=== PATIENT | female | born 1970 | race Caucasian/White ===

== ENCOUNTER 2023-07-05 17:50 | Emergency (ER) | payer OTHER, SELFPAY ==
--- NOTE | ~2023-07-05 | CT_ITS ---
EXAMINATION: CT HEAD WITHOUT CONTRAST (STROKE PROTOCOL) EXAMINATION: CLINICAL INFORMATION: New onset of blurry vision COMPARISON: None. TECHNIQUE: Contiguous axial imaging was performed from the skull base to vertex without intravenous administration of contrast. Coronal and sagittal reformatted images are performed at the CT scanner. [This CT examination was performed using dose optimization techniques as appropriate, variously including the following: *Automated exposure control *Adjustment of mA and/or kV according to patient size (this includes techniques or standardized protocols for targeted exams where dose is matched to indication/reason for exam; i.e. extremities or head) *Use of iterative reconstruction technique] DLP: 631 mGy-cm. FINDINGS: There is no evidence of acute intracranial hemorrhage or territorial infarction. No abnormal mass-effect or midline shift is seen. [place] to white matter differentiation is well preserved. No extra-axial fluid collections are identified. The ventricles are normal in size. There is no abnormal attenuation within the brain parenchyma. There is no osseous abnormality. The mastoid air cells and visualized portions of the paranasal sinuses are well-aerated. CT/CT head for stroke IMPRESSION: No acute intracranial pathology. This critical result was discussed with Ryley at 1823 hours on 07/05/2023. It was ascertained that the content and urgency of the report was understood at the time of direct communication.
--- NOTE | 2023-07-05 17:53 | ED.GENADULT ---
HPI - General Adult General Chief complaint: Eye Problems Stated complaint: vision becoming more blurry x1 hour Time Seen by Provider: 07/05/23 18:08 Source: patient Mode of arrival: ambulatory Limitations: no limitations History of Present Illness HPI narrative: 52-year-old female with a history hyperlipidemia who presents emergency department for evaluation of vision changes in both eyes. The patient states that she took a hot shower. She was then getting dressed and putting laundry way when she had blurred vision in both eyes. She describes the change and blotches in her vision is if someone put Vaseline over glass. She denied any associated symptoms. She denied headache, nausea, vomiting, weakness, numbness. She states that 1 month prior she did have a new floater in her right eye but she states she only sees this when she is trying to read. Patient does not wear glasses and states she only uses reading glasses. Patient was seen by provider at triage and she was made a stroke alert and she was brought directly to the CT scanner and then to a room. Related Data Previous Rx's Medication Instructions Recorded metoclopramide HCl 10 mg tablet 10 mg PO Q6H PRN nausea and 07/05/23 (Reglan) vomiting #14 tabs Allergies Allergy/AdvReac Type Severity Reaction Status Date / Time No Known Allergies Allergy Verified 07/05/23 17:55 Review of Systems Review of Systems: Yes all other systems are reviewed and are negative [facility] Past Medical History [facility] Narrative: Social history: Patient denies tobacco use. She occasionally drinks alcohol. She does smoke marijuana and use edible marijuana. Social History Social History Smoked in Last 30 Days: No Advance Directives: No Advance Directives Information Provided: No Physical Exam ED Vital Signs: Vital Signs - 24 hr 07/05/23 17:56 07/05/23 19:38 07/05/23 20:22 Temperature 97.9 F 98.2 F Pulse Rate 87 99 73 Respiratory Rate 16 15 16 Blood Pressure 143/87 H 134/84 128/73 Pulse Oximetry 98 98 Oxygen Delivery Method Room Air Room Air Room Air BMI result Body Mass Index 25.2 Vital signs were normal Exam: General: Awake, alert in no distress Head: Normocephalic, atraumatic EENT: PERRL, Lids normal, sclera normal, conjunctiva normal, nose normal , ears normal, throat without erythema or exudates Neck: Supple, no adenopathy Lung: breath sounds symmetric, no wheezing, rales or rhonchi Chest: symmetric movement, nontender Heart: regular rate and rhythm, normal S1, S2 no murmurs or rubs Abdomen: soft, non-tender, nondistended, normal bowel sounds Back: no vertebral tenderness, no CVAT Extremities: no deformities, moves all extremities symmetrically Skin: no rashes, no lesion, normal color and warmth Neuro: Awake, alert, oriented, normal speech, cranial nerves intact, moves all extremities symmetrically , peripheral vision is normal with no deficits Psych: Pleasant, cooperative NIH Stroke Scale Internal: Initial- Upon Arrival Time: 17:58 Level of Consciousness: Alert Level of Consciousness Questions: Answers both questions correctly Level of Consciousness Commands: Performs both tasks correctly Best Gaze: Normal Visual: No visual loss (left eye) Facial Palsy: Normal Motor Arm (Right): No drift Motor Arm (Left): No drift Motor Leg (Right): No drift Motor Leg (Left): No drift Limb Ataxia: Absent Sensory: Normal Best Language: No aphasia Dysarthia: Normal Extinction and Inattention: No abnormality Score: 0 Course Course Course Narrative: This is a rapid medical exam: Additional HPI, ROS, PE not included below will be deferred to primary provider. Patient is a 53-year-old female presenting to the emergency department stating that she noted some blurred spots in her vision to both eyes after showering about one hour ago. Reports increasing blurred vision since. Describes as if someone put their thumbs in vaseline and touched my eyes. Reports a few weeks ago had a tiny black spot appear in vision of right eye. Denies headache, denies history of HTN. States was unable to text on phone due to the blurriness. States symptoms seem to be resolving in triage. Plan: patient activated as stroke alert Medications Administered Discontinued Medications Generic Name Dose Route Start Last Admin Trade Name Freq PRN Reason Stop Dose Admin Diphenhydramine HCl 50 mg 07/05/23 18:25 07/05/23 19:32 Diphenhydramine Hcl 50 Mg/Ml Vial IVPUSH 07/05/23 18:26 50 mg ONCE STA Administration Ketorolac Tromethamine 15 mg 07/05/23 18:25 07/05/23 19:32 Ketorolac Tromethamine 15 Mg/Ml Vial IVPUSH 07/05/23 18:26 15 mg ONCE STA Administration Metoclopramide HCl 10 mg 07/05/23 18:25 07/05/23 19:32 Metoclopramide Hcl 10 Mg/2 Ml Vial IVPUSH 07/05/23 18:26 10 mg ONCE STA Administration Medical Decision Making Medical Decision Making [facility] Narrative: 53-year-old female who presents emergency department for evaluation of sudden onset of visual change in both eyes that occurred 1 hour prior to coming to emergency department. The patient had just taken a hot shower and was doing light work at home when the symptoms started. She had no headache or other associated symptoms. Patient's physical examination was unremarkable, she had no peripheral vision defects. NIH stroke scale was 0. Differential diagnosis: ?Includes but is not limited to stroke, cerebral hemorrhage, ocular migraine, retinal detachment, vitreous tear, retinal artery emboli, diabetes, giant cell arteritis Following evaluation was ordered: CBC, BNP, PT/INR, PTT,, troponin, ESR, CRP, point of care glucose, point of care PT/INR, CT scan of the head stroke protocol are anemia Patient was initially treated with the following: IV insert, Reglan 10 mg IV, Benadryl 10 mg IV and Toradol 15 mg IV, normal saline x1 L Course: 20:05 Patient's symptoms resolved with the above treatment but she states the symptoms were improving prior to receiving the medication. My interpretation patient's laboratory evaluation as follows: CBC was normal. CMP was normal. Troponin was below detectable limits. ESR and CRP were normal. CT scan of the brain revealed no acute findings. At this time I suspect the patient's symptoms are consistent with an ocular migraine I did discuss this with her. Patient was advised to take the following regimen for symptoms returned: Reglan 10 mg, Benadryl 50 mg, Excedrin migraine 2 pills every 6 hours as needed. She was given printed and verbal instructions and discharged home. Admission/Observation Consideration of admission/observation: Escalation of care including admission/observation considered Lab Data [facility] Lab Attestation statement: I reviewed the patient's lab results. 07/05/23 18:16 07/05/23 18:16 Labs: Lab Results 07/05/23 07/05/23 07/05/23 Range/Units 18:16 18:18 18:21 WBC 7.2 (4.8-10.8) X10*3/uL RBC 4.44 (4.20-5.50) X10*6/uL Hgb 13.2 (12.0-16.0) g/dl Hct 39.4 (37.0-47.0) % MCV 88.7 (80.0-98.0) fL MCH 29.7 (27.0-33.0) pg MCHC 33.5 (31.0-35.0) g/dl RDW 12.3 (11.0-16.0) % Plt Count 274 (160-400) X10*3/uL MPV 9.4 (9.4-12.3) fL Immature Gran % (Auto) 0.3 (0.0-0.4) % Neut % (Auto) 41.2 L (45-73) % Lymph % (Auto) 46.6 H (20-40) % [place] % (Auto) 9.8 (2-11) % Eos % (Auto) 1.5 (0-4) % Baso % (Auto) 0.6 (0-2) % Lymph # (Auto) 3.4 (1.2-4.9) X10*3/uL [place] # (Auto) 0.7 (0.1-1.2) X10*3/uL Eos # (Auto) 0.1 (0.0-0.4) X10*3/uL Baso # (Auto) 0.0 (0.0-0.2) X10*3/uL Abs Immat Gran (auto) 0.02 (0.00-0.03) X10*3/uL Absolute Neuts (auto) 3.0 (2.0-8.3) x10*3/uL Absolute Nucleated RBC 0.000 (0.0-0.012) X10*3/uL Nucleated RBC % (auto) 0.0 (0.0-0.2) /100WBC ESR 12 (0-20) MM/HR PT 10.7 L (11.1-13.3) SEC INR 0.9 (0.9-1.1) APTT 35.7 (26.0-36.8) SEC Sodium 137 (135-145) mmol/L Potassium 3.8 (3.3-5.1) mmol/L Chloride 104 (96-108) mmol/L Carbon Dioxide 26 (22-29) mmol/L Anion Gap 11 L (12-20) BUN 12 (9-16) mg/dL Creatinine 0.74 (0.5-1.4) mg/dL Estim Creat Clear Calc 84.2 Estimated GFR > 60 POC Glucose 93 (60-115) mg/dL Random Glucose 91 (60-115) mg/dL Calcium 9.7 (8.4-10.2) mg/dL Total Creatine Kinase 53 (26-140) U/L Troponin I High Sens < 2.7 (<3.5-17.0) ng/L C-Reactive Protein 0.14 (< or = 0.50) mg/dL Independent Interpretation I performed an independent interpretation of an: EKG Interpretation: My independent interpretation patient's 12 EKG done at 18:49 hours is as follows: Normal sinus rhythm rate of 69, normal OH interval, QRS duration QTC interval, no ST segment elevation, no ST segment depression, inverted T-wave in V1, no PACs, no PVCs. This is a normal EKG. Radiology Impression Discussion of test interpretation with radiology: I have reviewed the radiologist's reading. Radiologist Impression: CT head for stroke IMPRESSION: No acute intracranial pathology. This critical result was discussed with Sciruto at 1823 hours on 07/05/2023. It was ascertained that the content and urgency of the report was understood at the time of direct communication. Dictated By: Rafiq Christy MD Chronic Conditions Patient?s care impacted by: Other (Hyperlipidemia) Critical Care Time Critical Care Time Critical Care Time: Yes Total Critical Care Time: 35 Attestation: Critical Care: The patient was critically ill with a high probability of imminent or life threatening deterioration. I spent greater than 30 minutes of discontinuous time evaluating the patient,delivering critical care at the bedside, discussing and evaluating pertinent data with consultants. Critical care time does not include time spent performing separately billable procedures or teaching. Total time spent performing critical care was 35 minutes. Discharge Plan Discharge Clinical Impression: Ocular migraine Patient Disposition: Home, Self-Care Instructions: Ocular Migraine (ED) Additional Instructions: Your blood work was unremarkable, your inflammatory markers were not elevated. The CT scan of your brain without IV contrast did not reveal any abnormalities which is reassuring. Your symptoms are consistent with an ocular migraine. . I want you to take the following 3 medications together every 6 hours as needed for headache, visual change, nausea or vomiting. ? Reglan (metoclopramide) in 10 mg, 1 pill Benadryl 25 mg, 2 pills Excedrin migraine, 2 pills. After you take these medications, lie down in a dark quiet room and try to fall asleep. ?These medications will make you sleepy, do not drive or work after taking these medications. Follow-up with your doctor in 2 days. Please return to the emergency department if your symptoms get worse or if you develop any symptoms that are concerning to you. Follow-up with your doctor in 2 days. Please return to the emergency department if your symptoms get worse or if you develop any symptoms that are concerning to you. Prescriptions: New metoclopramide HCl [Reglan] 10 mg tablet 10 mg PO Q6H PRN (Reason: nausea and vomiting) Qty: 14 0RF Interventions: ED Discharge Assessment Last Done: 07/05/23 20:34 Discharge Date/Time: 07/05/23 20:35
[2023-07-05 17:56] VITALS: BP 143/87; PULSE 87; RESP 16; TEMP 36.6; O2SAT 98; BMI 25.2
--- NOTE | 2023-07-05 17:59 | ECG_ITS ---
Test Reason : EYE PROBLEMS Blood Pressure : / mmHG Vent. Rate : 069 BPM Atrial Rate : 069 BPM P-R Int : 164 ms QRS Dur : 078 ms QT Int : 392 ms P-R-T Axes : 059 012 024 degrees QTc Int : 420 ms Normal sinus rhythm Normal ECG No previous ECGs available Referred By: Keesha Vigil Electronically Signed By:MARYURI ROSE
--- NOTE | 2023-07-05 18:00 | PC.NURSE ---
pt antony back from triage directly to ct scan w/o going to pt's room- md durham present.
[2023-07-05 18:28] LABS: MANUAL DIFF FLAG NO
[2023-07-05 18:31] LABS: Basophils Percent Auto 0.6 % (0-2); Eosinophils Absolute Auto 0.1 X10*3/uL (0.0-0.4); Eosinophils Percent Auto 1.5 % (0-4); Hematocrit 39.4 % (37.0-47.0); Hemoglobin 13.2 g/dl (12.0-16.0); Imm Gran Abs Auto 0.02 X10*3/uL (0.00-0.03); Imm Gran Pct Auto 0.3 % (0.0-0.4); Lymphocytes Absolute Auto 3.4 X10*3/uL (1.2-4.9); Lymphocytes Percent Auto 46.6 % (20-40); Mean Corpuscular HGB Conc 33.5 g/dl (31.0-35.0); Mean Corpuscular Hemoglobin 29.7 pg (27.0-33.0); Mean Corpuscular Volume 88.7 fL (80.0-98.0); Mean Platelet Volume 9.4 fL (9.4-12.3); Monocytes Absolute Auto 0.7 X10*3/uL (0.1-1.2); Monocytes Percent Auto 9.8 % (2-11); Neutrophils Percent Auto 41.2 % (45-73); Platelet Count 274 X10*3/uL (160-400); Red Blood Count 4.44 X10*6/uL (4.20-5.50); Red Cell Distribution Width 12.3 % (11.0-16.0); White Blood Count 7.2 X10*3/uL (4.8-10.8)
[2023-07-05 18:33] LABS: Glucose, Whole Blood 93 mg/dL (60-115)
[2023-07-05 18:36] LABS: INTERNATIONAL NORM RATIO 0.9 (0.9-1.1); Prothrombin Time 10.7 SEC (11.1-13.3)
[2023-07-05 18:39] LABS: Partial Thromboplastin Time 35.7 SEC (26.0-36.8)
[2023-07-05 18:46] LABS: Anion Gap 11 (12-20); Blood Urea Nitrogen 12 mg/dL (9-16); C Reactive Protein 0.14 mg/dL (< or = 0.50); Calcium 9.7 mg/dL (8.4-10.2); Carbon Dioxide 26 mmol/L (22-29); Chloride 104 mmol/L (96-108); Creatinine Clr Calc Pharmacy 84.2; Estimated Glomerular Filt Rate > 60; Glucose Random 91 mg/dL (60-115); Potassium 3.8 mmol/L (3.3-5.1); Sodium 137 mmol/L (135-145)
[2023-07-05 18:54] LABS: Troponin-I High Sensitivity < 2.7 ng/L (<3.5-17.0)
[2023-07-05 19:11] LABS: Stroke Lab Use COMPLETE
[2023-07-05 19:11] LABS: Erythrocyte Sedimentation Rate 12 MM/HR (0-20)
[2023-07-05] MEDS: diphenhydrAMINE HCL 50 MG/ML VIAL IVPUSH (19:32)
[2023-07-05] MEDS: Ketorolac Tromethamine 15 MG/ML VIAL IVPUSH (19:32)
[2023-07-05] MEDS: Metoclopramide HCl 10 MG/2 ML VIAL IVPUSH (19:32)
[2023-07-05 19:38] VITALS: BP 134/84; PULSE 99; RESP 15
[2023-07-05 20:22] VITALS: BP 128/73; PULSE 73; RESP 16; TEMP 36.8; O2SAT 98
--- NOTE | 2023-07-05 20:35 | PC.NURSE ---
messaged dr durham to add two prescriptions not included on d/c instruction rx section but stated in directions.
[2023-07-06 08:45] LABS: Prothrombin Time Whole Bld POC 12.8 sec (11.1-13.5); ~PT, ~INR - Anti Coag Clinic 0.9 (0.9-1.1)
== END 2023-07-05 20:35 | disposition home or self-care (01) ==
PROVIDERS: Registered Nurse Emergency; Emergency Provider Emergency Medicine Emergency Medical Services
DX: G43.B0 Ophthalmoplegic migraine, not intractable (principal)
CPT/HCPCS: 36415; 70450; 80048; 82550; 82947; 84484; 85025; 85610; 85652; 85730; 86140; 93005; 96374; 96375; 99284; J1200; J1885; J2765

== ENCOUNTER → 2023-07-05 17:59 | Outpatient (BNV) | payer OTHER, SELFPAY | PROVIDERS: Emergency Provider Emergency Medicine Emergency Medical Services; Visit Provider Internal Medicine | DX: R94.31 Abnormal electrocardiogram [ECG] [EKG] (principal) | CPT/HCPCS: 93010 ==